=== PATIENT | female | born 1995 | race Caucasian/White ===

== ENCOUNTER 2019-01-29 18:51 | Inpatient (IN) | payer MEDICAID ==
[~2019-01-29] VITALS: Ht 157.5 cm; Wt 90.6 kg
[2019-01-29 19:37] LABS: Urine Bacteria NONE SEEN /hpf (None Seen); Urine Blood Negative /uL (Negative); Urine Mucus FEW (None Seen); Urine Specific Gravity 1.029 (1.001-1.035); Urine WBC 3 /hpf (0 - 5)
[2019-01-29 20:36] LABS: BUN/Creatinine Ratio 24.1; Potassium 3.9 mmol/L (3.5-5.1)
[2019-01-29 20:37] LABS: Basophils # (auto) 0.1 uL; Basophils % (auto) 1.1 % (0.0-2.0); Eosinophils # (auto) 0.2 uL; Eosinophils % (auto) 1.8 % (0.0-7.0); Hematocrit 42.3 % (36.0-46.0); Hemoglobin 14.4 g/dL (12.2-16.2); Lymphocytes # (auto) 3.4 uL; Lymphocytes % (auto) 34.3 % (10.0-50.0); Mean Corpuscular Hemoglobin 29.9 pg (28.0-32.0); Mean Corpuscular Volume 87.9 fL (80.0-100.0); Monocytes # (auto) 0.8 uL; Monocytes % (auto) 7.6 % (0.0-12.0); Neutrophils # (auto) 5.4 uL; Neutrophils % (auto) 55.2 % (37.0-80.0); Platelet Count (auto) 313 10^3/uL (140-450); Red Blood Cells 4.81 10^6/uL (4.0-5.20); Red Cell Distribution Width 13.8 % (11.8-14.3); White Blood Cell 9.9 10^3/uL (4.4-10.8)
[2019-01-29 21:40] LABS: Alanine Aminotransferase 24 U/L (13-56); Albumin 3.9 g/dL (3.4-5.0); Aspartate Aminotransferase 30 U/L (15-37); Bilirubin, Direct < 0.1 mg/dL (0-0.2)
[2019-01-29 21:44] LABS: Alkaline Phosphatase 43 U/L (45-117); Bilirubin, Total 0.2 mg/dL (0.2-1.0); Total Protein 7.4 g/dL (6.4-8.2)
[2019-01-29] MEDS ORDERED: KETOROLAC TROMETH 30 MG/ML 1ML VIAL IV ONE (22:00)
[2019-01-29] MEDS ORDERED: SODIUM CHLORIDE 0.9% 1,000 ML IV ONE (22:00)
[2019-01-29] MEDS: ONDANSETRON HCL 4 MG/2 ML VIAL IV ONE (22:21)
[2019-01-29] MEDS ORDERED: ONDANSETRON HCL 4 MG/2 ML VIAL IV PRN (22:30)
[2019-01-29] MEDS ORDERED: TEMAZEPAM 15 MG CAP PO PRN (22:30)
[2019-01-29] MEDS ORDERED: ACETAMINOPHEN 325 MG TAB PO PRN (22:30)
--- NOTE | 2019-01-29 23:50 | NUR ---
MS admit from ER SWETA HURLEY admitted to tele/MS after SBAR received. Patient oriented to [facility], RN primary RN, unit, room, bed, and unit policies regarding patient care and visiting hours. Patient weighed by bedscale and encouraged to call if they need something. All questions and concerns addressed, patient verbalized understanding.
[2019-01-30 01:34] VITALS: BP 114/74
[2019-01-30 04:56] VITALS: BP 118/89
[2019-01-30 05:33] LABS: Basophils # (auto) 0.1 uL; Basophils % (auto) 0.8 % (0.0-2.0); Eosinophils # (auto) 0.2 uL; Eosinophils % (auto) 2.5 % (0.0-7.0); Hematocrit 40.4 % (36.0-46.0); Hemoglobin 13.8 g/dL (12.2-16.2); Lymphocytes # (auto) 2.8 uL; Lymphocytes % (auto) 34.5 % (10.0-50.0); Mean Corpuscular Hemoglobin 30.1 pg (28.0-32.0); Mean Corpuscular Hgb Conc. 34.1 g/dL (32.0-36.0); Mean Corpuscular Volume 88.3 fL (80.0-100.0); Monocytes # (auto) 0.7 uL; Monocytes % (auto) 8.5 % (0.0-12.0); Neutrophils # (auto) 4.4 uL; Neutrophils % (auto) 53.7 % (37.0-80.0); Nucleated Red Blood Cells % 0.2 %; Platelet Count (auto) 281 10^3/uL (140-450); Red Blood Cells 4.58 10^6/uL (4.0-5.20); Red Cell Distribution Width 14.2 % (11.8-14.3); White Blood Cell 8.2 10^3/uL (4.4-10.8)
[2019-01-30 05:51] LABS: BUN/Creatinine Ratio 27.1; Calcium 8.3 mg/dL (8.5-10.1); Potassium 3.9 mmol/L (3.5-5.1)
--- NOTE | 2019-01-30 07:32 | NUR ---
Opening Shift Note Assumed care of patient, awake and alert. No S/S of distress/SOB or pain. Bed in lowest and locked position with side rails upx2 and call light within reach. Instructed on POC and to call for assist PRN, will continue to monitor for changes Q1hr and PRN.
[2019-01-30 09:00] VITALS: BP 118/63
[2019-01-30] MEDS ORDERED: PNEUMOCOCCAL VACC POLYS 25 MCG/0.5 ML VIAL IM ONE (09:00)
[2019-01-30] MEDS: FAMOTIDINE 20 MG TAB PO SCH ×2 (09:29→22:24)
[2019-01-30 10:23] LABS: INR 0.97 (0.9-1.15); Partial Thromboplastin Time 27.2 sec (23.64-32.05)
[2019-01-30 13:00] VITALS: BP 127/59
--- NOTE | 2019-01-30 13:00 | NUR ---
PT TAKEN TO [facility]
[2019-01-30] MEDS ORDERED: ceFAZolin 1GM/50ML 50 ML IV ONE (13:09)
[2019-01-30] MEDS ORDERED: POVIDONE IODINE 10 % TOPICAL OINT 30GM TOP ONE (13:33)
[2019-01-30] MEDS ORDERED: METOCLOPRAMIDE HCL 5MG/ml INJ 2ml VIAL IV ONE (13:35)
[2019-01-30] MEDS ORDERED: MIDAZOLAM HCL 1MG/1ML-2 ML VIAL ONE (13:44)
[2019-01-30] MEDS ORDERED: fentaNYL CITRATE 100 MCG/2 ML VL ONE (13:44)
[2019-01-30] MEDS ORDERED: MEPERIDINE HCL (50 MG/ML) 1 ML VIAL ONE (13:44)
[2019-01-30] MEDS ORDERED: ROCURONIUM 10MG/ML 10ML VIAL IV ONE (13:46)
[2019-01-30] MEDS ORDERED: PROPOFOL 10 MG/ML 20 ML IV ONE (13:46)
[2019-01-30] MEDS ORDERED: DexAMETHasone SOD PHOS 10MG/1ML VIAL INJ ONE (13:46)
[2019-01-30] MEDS ORDERED: MIDAZOLAM HCL 1MG/1ML-2 ML VIAL IV PRN (14:30)
[2019-01-30] MEDS ORDERED: ePHEDrine SULFATE 50 MG/ML AMP IV PRN (14:30)
[2019-01-30] MEDS ORDERED: HYDROmorphone HCL 2 MG/ML VL IV PRN (14:30)
[2019-01-30] MEDS ORDERED: MORPHINE SULFATE 4 MG/ML SYR/VIAL IV PRN (14:30)
[2019-01-30] MEDS ORDERED: ONDANSETRON HCL 4 MG/2 ML VIAL IV PRN (14:30)
[2019-01-30] MEDS ORDERED: LABETALOL HCL 5 MG/ML 4ML SYRINGE IV PRN (14:30)
[2019-01-30] MEDS: ONDANSETRON HCL 4 MG/2 ML VIAL IV ONE ×2 (14:59→15:05)
[2019-01-30] MEDS: KETOROLAC TROMETH 30 MG/ML 1ML VIAL IV ONE (15:25)
--- NOTE | 2019-01-30 15:47 | NUR ---
RECEIVED REPORT FROM POST-OP RNASYA. AWAITING PT ARRIVAL.
[2019-01-30 16:51] VITALS: BP 114/69
[2019-01-30] MEDS: HYDROcodone-ACET 5/325MG TAB PO PRN ×2 (18:21→22:25)
--- NOTE | 2019-01-30 19:50 | NUR ---
Opening Shift Note Pt is resting in bed with eyes open and resp rate is even and unlabored. No s/s of any distress at this time. POC discussed with pt and pt verbalizes understanding. Bed is low, wheels are locked, and call light is with in reach.
[2019-01-30 21:37] VITALS: BP 111/72
[2019-01-31 04:32] VITALS: BP 117/54
[2019-01-31] MEDS: HYDROcodone-ACET 5/325MG TAB PO PRN ×2 (08:32→13:32)
[2019-01-31 09:39] VITALS: BP 115/61
--- NOTE | 2019-01-31 09:45 | NUR ---
SPOKE TO DR. LARA ACCORDING TO DR. LARA, PT IS CLEARED FOR DISCHARGE.
[2019-01-31] MEDS: FAMOTIDINE 20 MG TAB PO SCH (10:04)
[2019-01-31 12:30] VITALS: BP 111/67
[2019-01-31] MEDS ORDERED: FAM20T PO (13:13)
[2019-01-31] MEDS ORDERED: IBUP400T21 PO (13:13)
--- NOTE | 2019-01-31 16:25 | NUR ---
Discharge instructions given as ordered. Encourage to follow up with PMD as instructed. All questions and concerns addressed. Patient verbalized understanding. Medication reconciliation form completed and copy given to patient. No Home medications held in Pharmacy. Pt refused vaccines. IV removed with catheter intact, pressure dressing applied.
--- NOTE | 2019-01-31 16:33 | NUR ---
Patient refused wheel chair and assistance and walked off unit with all personal belongings, accompanied by family member. No distress noted at time of departure.
== END 2019-01-31 16:33 | disposition home or self-care (01) | DRG 263 ==
LOC: ER 18:51 → OVERFLOW 18:52 → WEST WING 23:44
PROVIDERS: ADMIT Nurse Practitioner; ATTEND Internal Medicine
PROC: 0FT44ZZ Resection of Gallbladder, Percutaneous Endoscopic Approach (ICD-10-PCS; principal; 2019-01-30 13:45)
DX: K80.12 Calculus of gallbladder with acute and chronic cholecystitis without obstruction (principal); E66.9 Obesity, unspecified; F17.210 Nicotine dependence, cigarettes, uncomplicated; Z68.36 Body mass index [BMI] 36.0-36.9, adult; Z28.21 Immunization not carried out because of patient refusal
CPT/HCPCS: 36415; 76705; 78226; 80048; 80076; 81001; 81025; 82247; 83690; 85025; 85610; 85730; 86850; 86900; 86901; 96361; 96374; G0378; J0690; J1100; J1885; J2250; J2405; J2704